=== PATIENT | male | born 1945 | race Caucasian/White ===

== ENCOUNTER → 2018-09-18 08:08 | Outpatient (CLI) | payer MEDICARE, OTHER ==
[2018-09-19 08:16] LABS: IMMUNOGLOBULIN A 456 mg/dL (61-437); IMMUNOGLOBULIN G 780 mg/dL (700-1600); IMMUNOGLOBULIN M 78 mg/dL (20-172)
[2018-09-23 16:07] LABS: IMMUNOGLOBULIN E 6007 IU/mL (6-495)
== END | disposition home or self-care (01) ==
LOC: D.RT 08:00
PROVIDERS: ATTEND Internal Medicine Pulmonary Disease
DX: J44.9 Chronic obstructive pulmonary disease, unspecified (principal); J42 Unspecified chronic bronchitis